=== PATIENT | male | born 1965 | race Caucasian/White ===

== ENCOUNTER 2019-01-13 18:20 | Emergency (ER) | payer OTHER ==
[~2019-01-13] VITALS: Ht 185.4 cm; Wt 104.3 kg
[2019-01-13 18:59] VITALS: BP_SYST 122
[2019-01-13] MEDS ORDERED: KETOROLAC TROMETHAMINE 60 MG/2 ML VIAL IM ONE (20:15)
[2019-01-13] MEDS ORDERED: BACITRACIN 1 GM OINT TP ONE (21:00)
[2019-01-13 21:45] VITALS: BP_SYST 137
== END 2019-01-13 20:35 | disposition home or self-care (01) ==
LOC: SED 18:20
DX: S93.402A Sprain of unspecified ligament of left ankle, initial encounter (principal); S43.402A Unspecified sprain of left shoulder joint, initial encounter; S20.212A Contusion of left front wall of thorax, initial encounter; S40.812A Abrasion of left upper arm, initial encounter; R03.0 Elevated blood-pressure reading, without diagnosis of hypertension; V29.9XXA Motorcycle rider (driver) (passenger) injured in unspecified traffic accident, initial encounter; Y93.89 Activity, other specified; Y92.410 Unspecified street and highway as the place of occurrence of the external cause; Y99.8 Other external cause status
CPT/HCPCS: 71046-TC; 71100; 73030; 99283; J1885

== ENCOUNTER 2023-05-29 13:59 | Emergency (ER) | payer OTHER, BC ==
[~2023-05-29] VITALS: Ht 185.4 cm; Wt 111.1 kg
[2023-05-29 15:03] VITALS: BP_SYST 139; PULSE 78; RESP 18; TEMP 98.8; O2SAT 98
[2023-05-29 16:54] VITALS: BP_SYST 132; PULSE 62; RESP 17; TEMP 98.8; O2SAT 98
== END 2023-05-29 16:50 | disposition home or self-care (01) ==
LOC: SED 13:59
DX: S16.1XXA Strain of muscle, fascia and tendon at neck level, initial encounter (principal); S39.012A Strain of muscle, fascia and tendon of lower back, initial encounter; M50.30 Other cervical disc degeneration, unspecified cervical region; I10 Essential (primary) hypertension; V49.49XA Driver injured in collision with other motor vehicles in traffic accident, initial encounter; Y93.89 Activity, other specified; Y92.89 Other specified places as the place of occurrence of the external cause; Y99.8 Other external cause status
CPT/HCPCS: 70450-TC; 71046-TC; 72100-TC; 72125-TC; 76376; 99284